=== PATIENT | female | born 1985 | race Caucasian/White ===

== ENCOUNTER 2020-05-24 02:00 | Inpatient (IN) | payer OTHER ==
[2020-05-24 04:24] VITALS: BMI 21.1
[2020-05-24 04:58] LABS: BASO % 0.3 % (0-2.0); EOS % 0.2 % (0-4.5); HEMATOCRIT 38.6 % (32.4-45.2); LYMPH % 12.6 % (8-40); MCH 29.5 pg (25.7-33.7); MCHC 33.6 g/dl (32.0-36.0); MEAN CELL VOLUME 87.9 fl (80-96); MEAN PLT VOLUME 10.2 fl (7.5-11.1); NEUT % 78.9 % (42.8-82.8); PLATELET COUNT 184 K/MM3 (134-434); RBC 4.39 M/mm3 (3.60-5.2); RDW 13.7 % (11.6-15.6); WHITE BLOOD COUNT 15.3 K/mm3 (4.0-10.0)
[2020-05-24] MEDS ORDERED: BUTORPHANOL TARTRATE 2 MG/ML VIAL ONE (05:04)
[2020-05-24] MEDS ORDERED: PROMETHAZINE HCL 25 MG/1 ML VIAL ONE (05:04)
[2020-05-24 05:10] LABS: INR 0.85 (0.83-1.09)
[2020-05-24 05:13] LABS: ACTIVATED PTT 26.1 SECONDS (25.2-36.5)
[2020-05-24 05:22] LABS: BLOOD UREA NITROGEN 10.8 mg/dL (7-18); CALCIUM 9.7 mg/dL (8.5-10.1); CREATININE 0.5 mg/dL (0.55-1.3); POTASSIUM 3.7 mmol/L (3.5-5.1)
[2020-05-24] MEDS ORDERED: PROMETHAZINE HCL 25 MG/1 ML VIAL IVPB ONE (05:45)
[2020-05-24] MEDS ORDERED: BUTORPHANOL TARTRATE 2 MG/ML VIAL IVPB ONE (05:45)
[2020-05-24] MEDS ORDERED: ELECTROLYTE-148 SOLN 1,000 ML IV SCH ×2 (05:45→07:45)
[2020-05-24] MEDS ORDERED: PCA PUMP NR ONE (06:59)
[2020-05-24] MEDS ORDERED: FENTANYL/BUPIVACAINE/NS/PF - PCEA - 50 ML DISP.SYRIN EP ONE (07:00)
--- NOTE | 2020-05-24 07:17 | PD.OB.PROG ---
Past Medical History - Primary Care Physician PCP:: Anu Trejo Documenting Provider Type: Laborist - Admission Chief Complaint: ctx.; for poss. discharge History of Present Illness: Second baby, 38.5 wks. Ctx on and off for several hour. No cervical changes. GBS neg. History Source: Patient, Medical Record Limitations to Obtaining History: No Limitations - Nursing Documentation Maternal Triage Index: Maternal Triage Index ( Priority 3, Prompt MFTI) Maternal Triage Index ( Priority 3, Prompt MFTI) Hemorrhage Risk Assessment: Risk Level Low Risk Risk Level Low Risk High Level Risk Factors for None Hemorrhage High Level Risk Factors for None Hemorrhage Medium Level Risk Factors for None of the above Hemorrhage Medium Level Risk Factors for None of the above Hemorrhage Low Level Risk Factors for No previous uterine incis,Marie Pregnaancy, Hemorrhage Four (4) or less previous,No known bleeding,No history of PPH Low Level Risk Factors for Marie Pregnaancy Hemorrhage Nursing Documentation Reviewed: Yes - Past Medical History CHUCK BONER: Denies/None Cardio/Vascular: Denies/None Pulmonary: Denies/None Gastrointestinal: Denies/None Hepatobiliary: Denies/None Renal/: Denies/None ...: 4 ...Para: 1 ...Term: 1 ...: 0 ...Spon : 1 ...Induced : 1 ...Living Children: 1 ...Multiple Gestation: 0 ...LMP: 09/02/19 ... Weeks Gestation by Dates: 38.5 ...EDC by Dates: 06/02/20 Heme/Onc: Denies/None Infectious Disease: Denies/None Psych: Denies/None Musculoskeletal: Denies/None Rheumatology: Denies/None ENT: Denies/None Endocrine: Denies/None Dermatology: Denies/None - Smoking History Smoking history: Never smoked Have you smoked in the past 12 months: No - Alcohol/Substance Use Hx Alcohol Use: No - Social History Usual Living Arrangement: With Spouse Review of Systems - Review of Systems Constitutional: reports: No Symptoms Eyes: reports: No Symptoms HENT: reports: No Symptoms Neck: reports: No Symptoms Cardiovascular: reports: No Symptoms Respiratory: reports: No Symptoms Gastrointestinal: reports: No Symptoms Genitourinary: reports: No Symptoms Breasts: reports: No Symptoms Reported Musculoskeletal: reports: No Symptoms Integumentary: reports: No Symptoms Neurological: reports: No Symptoms Endocrine: reports: No Symptoms Hematology/Lymphatic: reports: No Symptoms Psychiatric: reports: No Symptoms Physical Exam - Obstetrical Vital Signs: Vital Signs Temperature 98.1 F 05/24/20 06:00 Pulse Rate 88 05/24/20 06:00 Respiratory Rate 20 05/24/20 06:00 Blood Pressure 128/70 05/24/20 06:00 O2 Sat by Pulse Oximetry (%) 100 05/24/20 03:35 Constitutional: Yes: Well Nourished, No Distress, Calm Eyes: Yes: WNL, Conjunctiva Clear, EOM Intact HENT: Yes: WNL, Atraumatic, Normocephalic Neck: Yes: WNL, Supple, Trachea Midline Cardiovascular: Yes: WNL, Regular Rate and Rhythm Lungs: Clear to auscultation Breast(s): Yes: WNL - Abdominal Exam/OB Fundal Height: 38 Number of Fetuses: Single Presentation: Vertex Contractions: Yes Regularity: Irregular Intensity: Mild Monitor Mode: External Heart Rate (range): 140 Heart Rate Location: [facility] Category: I Accelerations: Uniform Decelerations: None - Vaginal Exam/OB Vaginal Exam Deferred: No Vaginal Bleeding: Bloody Show Speculum Exam: No Dilatation (cm): 3 Effacement (%): 50 Amniotic Membrane Status: Intact Presentation: Vertex/Position Station: -2 - Physical Exam Musculoskeletal: Yes: WNL Extremities: Yes: WNL Integumentary: Yes: WNL ...Motor Strength: WNL Psychiatric: Yes: WNL - Labs Lab Results: CBC, BMP 05/24/20 04:40 05/24/20 04:40 Problem List - Problems (1) Labor abnormality, antepartum Code(s): O62.9 - ABNORMALITY OF [employer] OF [employer], UNSPECIFIED Assessment/Plan Second baby, early labor. Pt. doesn't want to go home. Plan: OOB, walk. Augment labor in few hours if not active on her own. Expecting delivery today.
--- NOTE | 2020-05-24 07:39 | HP ---
Past Medical History - Primary Care Physician PCP:: Anu Trejo - Admission Chief Complaint: 34yo P1021 @ 38.2 wks with labor pains, no VB, no LOF, +FM History of Present Illness: 1.Anemia iron defficiency - corrected with diet 2. Prior 26oodm, uncomplicated 3. S<D - EFW <10% 4. Tetnus vaccination declined 5. GBS neg History Source: Patient Limitations to Obtaining History: No Limitations - Past Medical History ...: 4 ...Para: 1 ...Term: 1 ...: 0 ...Spon : 1 ...Induced : 1 ...Living Children: 1 ...Multiple Gestation: 0 ...LMP: 09/02/19 ... Weeks Gestation by Dates: 38.5 ...EDC by Dates: 06/02/20 - Past Surgical History Past Surgical History: Yes: None Hx Myomectomy: No Hx Transabdominal Cerclage: No - Smoking History Smoking history: Never smoked Have you smoked in the past 12 months: No - Alcohol/Substance Use Hx Alcohol Use: No - Social History History of Recent Travel: No Home Medications - Allergies Allergies/Adverse Reactions: Allergies Allergy/AdvReac Type Severity Reaction Status Date / Time No Known Allergies Allergy Verified 05/24/20 05:02 - Home Medications Home Medications: Ambulatory Orders Pnv No.95/Ferrous Fum/Folic AC [ Formula] 1 each PO DAILY 05/24/20 Review of Systems - Review of Systems Constitutional: reports: No Symptoms Eyes: reports: No Symptoms HENT: reports: No Symptoms Neck: reports: No Symptoms Cardiovascular: reports: No Symptoms Respiratory: reports: No Symptoms Gastrointestinal: reports: No Symptoms Genitourinary: reports: Other (+ contructions) Breasts: reports: No Symptoms Reported Musculoskeletal: reports: No Symptoms Integumentary: reports: No Symptoms Neurological: reports: No Symptoms Endocrine: reports: No Symptoms Hematology/Lymphatic: reports: No Symptoms Psychiatric: reports: No Symptoms Physical Exam - Maternity Vital Signs: Vital Signs Temperature 98.1 F 05/24/20 06:00 Pulse Rate 88 05/24/20 06:00 Respiratory Rate 20 05/24/20 06:00 Blood Pressure 128/70 05/24/20 06:00 O2 Sat by Pulse Oximetry (%) 100 05/24/20 03:35 Constitutional: Yes: Well Nourished, No Distress, Calm Eyes: Yes: WNL, Conjunctiva Clear HENT: Yes: WNL, Atraumatic, Normocephalic Neck: Yes: WNL, Supple, Trachea Midline Cardiovascular: Yes: WNL, Regular Rate and Rhythm Lungs: Clear to auscultation Breast(s): Yes: WNL - Abdominal Exam/OB Fundal Height: 35 Number of Fetuses: Single Presentation: Vertex Contractions: Yes Regularity: Regular Intensity: Mild/Mod Monitor Mode: External Heart Rate (range): 140 Heart Rate Location: Midline Category: I Accelerations: Uniform Decelerations: None - Vaginal Exam/OB Vaginal Bleeding: No Speculum Exam: No Dilatation (cm): 3 Effacement (%): 50% Amniotic Membrane Status: Intact Presentation: Vertex/Position Station: -3 - Physical Exam Musculoskeletal: Yes: WNL Extremities: Yes: WNL Edema: No Integumentary: Yes: WNL ...Motor Strength: WNL Psychiatric: Yes: WNL, Alert, Oriented - Labs Lab Results: CBC, BMP 05/24/20 04:40 05/24/20 04:40 Assessment/Plan 34yo P1 @ 38.2 wks in early active labor Admit to L&D NPO, Labs, IVF Pain management as per patient Adequate pelvis EFW 6lb Anticipate
[2020-05-24] MEDS ORDERED: OXYTOCIN 20 UNITS in 0.9% NS 20 UNIT/1,000 ML INFUS.BAG IV ONE ×2 (07:55→12:12)
[2020-05-24] MEDS ORDERED: NALOXONE HCL 0.4 MG/ML VIAL IVPUSH PRN (08:34)
[2020-05-24] MEDS ORDERED: FENTANYL/BUPIVACAINE/NS/PF - PCEA - 50 ML DISP.SYRIN EP SCH (08:45)
[2020-05-24] MEDS ORDERED: IBUPROFEN 600 MG TABLET (FP) PO PRN (10:24)
[2020-05-24] MEDS ORDERED: BENZOCAINE 28 GM HEMORRHOIDAL OINTMENT TP PRN (10:24)
[2020-05-24] MEDS ORDERED: WITCH HAZEL 50% (TUCKS) 40 PAD/JAR PAD TP PRN (10:24)
[2020-05-24] MEDS ORDERED: BENZOCAINE 20% 57 GM BOTTLE TP PRN (10:24)
[2020-05-24] MEDS ORDERED: BISACODYL 10 MG SUPP.RECT RC PRN (10:24)
[2020-05-24] MEDS ORDERED: ACETAMINOPHEN 325 MG TABLET (FP) PO PRN (10:24)
[2020-05-24] MEDS ORDERED: METHYLERGONOVINE MALEATE 0.2 MG/1 ML AMP IM PRN (10:24)
--- NOTE | 2020-05-24 10:24 | PN ---
Delivery - Delivery Vaginal Delivery: No Problems Maneuvers: Karen Type of Anesthesia: Epidural Episiotomy/Laceration: Vaginal Extension/lac, 1st degree EBL (cc): 300 Delivery, Single - Stages of Labor Date 1st Stage Initiatied: 05/24/20 Time 1st Stage Initiated: 04:00 Date 2nd Stage Initiated: 05/24/20 Time 2nd Stage Initiated: 09:30 Date of Delivery: 05/24/20 Time of Delivery: 10:06 Date Placenta Delivered: 05/24/20 Time Placenta Delivered: 10:08 Placenta: Yes: Spontaneous - Condition of Infant Clinical Exercise Physiologist/Campus President Present: No Infant Gender: Female Position: Right, OA - Feeding Plan Initial Plan: Exclusive throughout hospitalization Benefits of Exclusively reinforced: Yes
[2020-05-24] MEDS ORDERED: OXYTOCIN 20 UNITS in 0.9% NS 20 UNIT/1,000 ML INFUS.BAG IV SCH (10:30)
[2020-05-24 10:59] LABS: CORD BASE EXCESS -4.5 mmol/L (0-2); CORD HCO3 21.6 mmHg (20-29); CORD PCO2 43.7 mmHg (30-78); CORD pH 7.312 (7.14-7.44)
[2020-05-24 11:02] LABS: CORD BASE EXCESS -6.5 mmol/L (0-2); CORD HCO3 20.8 mmHg (20-29); CORD pH 7.255 (7.14-7.44)
[2020-05-24] MEDS: FERROUS SO4 325 MG TABLET (FP) PO SCH (18:11)
--- NOTE | 2020-05-25 08:59 | PN ---
Post Progress Note - Subjective Subjective: Patient without acute complaints. Reports tolerating oral intake without nausea or vomiting. Ambulating without dizziness. Denies fevers or chills. Pain well controlled with oral pain medication. Pumping/breast feeding without issue. Passing flatus, no BM. Post Day: 1 Type of Delivery: Vital Signs: Vital Signs Temperature 98.2 F 05/25/20 06:00 Pulse Rate 78 05/25/20 06:00 Respiratory Rate 18 05/25/20 06:00 Blood Pressure 100/61 05/25/20 06:00 O2 Sat by Pulse Oximetry (%) 98 05/24/20 18:51 Breast Exam: Yes: Soft Uterus: Yes: Fundus Firm, Fundus below umbilicus, Non-tender Abdomen/GI: Yes: Abdomen soft, Passing flatus, Tolerating PO Lochia: Yes: Rubra Lochia, amount: Small Extremities: Yes: Calves non-tender Perineum: Yes: Intact, Laceration Activity: Ambulating - Labs Labs: CBC WBC 15.3 K/mm3 (4.0-10.0) H 05/24/20 04:40 RBC 4.39 M/mm3 (3.60-5.2) 05/24/20 04:40 Hgb 13.0 GM/dL (10.7-15.3) 05/24/20 04:40 Hct 38.6 % (32.4-45.2) 05/24/20 04:40 MCV 87.9 fl (80-96) 05/24/20 04:40 MCH 29.5 pg (25.7-33.7) 05/24/20 04:40 MCHC 33.6 g/dl (32.0-36.0) 05/24/20 04:40 RDW 13.7 % (11.6-15.6) 05/24/20 04:40 Plt Count 184 K/MM3 (134-434) 05/24/20 04:40 MPV 10.2 fl (7.5-11.1) 05/24/20 04:40 Absolute Neuts (auto) 12.0 K/mm3 (1.5-8.0) H 05/24/20 04:40 Neutrophils % 78.9 % (42.8-82.8) 05/24/20 04:40 Lymphocytes % 12.6 % (8-40) 05/24/20 04:40 Monocytes % 8.0 % (3.8-10.2) 05/24/20 04:40 Eosinophils % 0.2 % (0-4.5) 05/24/20 04:40 Basophils % 0.3 % (0-2.0) 05/24/20 04:40 Nucleated RBC % 0 % (0-0) 05/24/20 04:40 Assessment/Plan 34yo P1 s/p , doing well stable, afebrile. Asymptomatic for anemia. care instructions reviewed. Continue routine care. Ambulation encouraged Discharge instruction reviewed.
[2020-05-25] MEDS: FERROUS SO4 325 MG TABLET (FP) PO SCH ×2 (09:00→18:24)
[2020-05-25 09:13] LABS: BASO % 0.1 % (0-2.0); EOS % 0.5 % (0-4.5); HEMATOCRIT 34.7 % (32.4-45.2); HEMOGLOBIN 11.5 GM/dL (10.7-15.3); LYMPH % 15.4 % (8-40); MCH 29.5 pg (25.7-33.7); MCHC 33.2 g/dl (32.0-36.0); MEAN CELL VOLUME 88.7 fl (80-96); MEAN PLT VOLUME 10.1 fl (7.5-11.1); MONO % 7.2 % (3.8-10.2); NEUT % 76.8 % (42.8-82.8); PLATELET COUNT 155 K/MM3 (134-434); RBC 3.91 M/mm3 (3.60-5.2); WHITE BLOOD COUNT 12.7 K/mm3 (4.0-10.0)
[2020-05-25] MEDS ORDERED: PRENATAL VITAMINS W/ FOLIC ACID TABLET (FP) PO SCH (10:00)
[2020-05-25 10:06] VITALS: BP 101/68; PULSE 84; TEMP 97.6
--- NOTE | 2020-05-25 17:36 | DS ---
Physical Exam-PROFESSOR OF PHYSICS Vital Signs: Vital Signs Temperature 97.6 F 05/25/20 09:54 Pulse Rate 84 05/25/20 09:54 Respiratory Rate 18 05/25/20 09:54 Blood Pressure 101/68 05/25/20 09:54 O2 Sat by Pulse Oximetry (%) 98 05/24/20 18:51 Constitutional: Yes: Well Nourished, No Distress, Calm Eyes: Yes: WNL, Conjunctiva Clear, EOM Intact HENT: Yes: WNL, Atraumatic, Normocephalic Neck: Yes: WNL, Supple, Trachea Midline Cardiovascular: Yes: WNL, Regular Rate and Rhythm Respiratory: Yes: WNL, Regular, CTA Bilaterally Gastrointestinal: Yes: WNL, Normal Bowel Sounds, Soft ...Rectal Exam: Yes: Deferred Renal/: Yes: WNL Pelvis: Yes: WNL ....Post : Yes: Uterus firm, Uterus non-tender, Slight lochia rubra Breast(s): Yes: WNL Musculoskeletal: Yes: WNL Extremities: Yes: WNL Edema: No Integumentary: Yes: WNL Neurological: Yes: WNL, Alert, Oriented ...Motor Strength: WNL Psychiatric: Yes: WNL, Alert, Oriented Labs: CBC, BMP 05/25/20 08:15 05/24/20 04:40 Delivery - Delivery Vaginal Delivery: No Problems, Spontaneous Maneuvers: Ritken Type of Anesthesia: Epidural Episiotomy/Laceration: Vaginal Extension/lac, 1st degree EBL (cc): 300 Delivery, Single - Stages of Labor Date 1st Stage Initiatied: 05/24/20 Time 1st Stage Initiated: 04:00 Date 2nd Stage Initiated: 05/24/20 Time 2nd Stage Initiated: 09:30 Date of Delivery: 05/24/20 Time of Delivery: 10:06 Time Placenta Delivered: 10:08 Placenta: Yes: Spontaneous, Normal Configuration - Condition of Infant Director Of Enterprise Strategy/Cafeteria Operator Present: [place]mill: Juancarlos Chacko Infant Gender: Female Weight: 2.75 kg Position: Right, OA Total Hours ROM (Hrs/Mins): 2hrs/16mins - 1 Minute Total Score: 9 5 Minutes Total Score: 9 - [place] Feeding Plan Initial Plan: Exclusive throughout hospitalization Benefits of Exclusively reinforced: Yes Discharge Summary Problems reviewed: Yes Reason For Visit: LABOR Current Active Problems Labor abnormality, antepartum (Acute) Procedures: Principal: Hospital Course: Normal recovery Plan of Treatment: Normal recovery, breast feeding encouraged Goals: Normal recovery Condition: Good - Instructions Diet, Activity, Other Instructions: Physical activity Resume your normal everyday activity as tolerated no heavy lifting or exercise u ntil seen by your surgeon. You may walk unlimited hitesh of and climb stairs. You may resume driving the car when you feel safe and comfortable behind the wheel. No sexual activity as instructed. Wound care If you have a bandage, leave it on, and keep dry for 48-72 hours. After that time discard the outer bandage. If they are tapes on the skin under the out of bandage leave them in place. They will peel off in the next 7 to 10 days. Do Not Peel them off. You may shower the day after surgery. If there are tapes present on the skin, you may shower over them. Diet There are no dietary restrictions. Eat healthy, high-fiber foods. Drink 6 to 8 glasses of liquid each day. This will assist in keeping your bowels are regular. Pain management You may take Tylenol or acetaminophen or Ibuprofen (for example, Motrin, Advil etc.) from my pain prescription medication is ordered should be taken as prescribed for moderate to severe pain. Call MD for any of the following: Severe pain not relieved by medication Fever of 101 or higher Excessive bleeding or drainage on dressing Inability to urinate Referrals: Anu Trejo MD [Staff Physician] - 1 Month Disposition: HOME - Home Medications Comprehensive Discharge Medication List: Ambulatory Orders Pnv No.95/Ferrous Fum/Folic AC [ Formula] 1 each PO DAILY 05/24/20 Prescription Drug Monitoring Program (I-STOP) results: I-STOP not reviewed
[2020-05-25] MEDS ORDERED: SENNOSIDES/DOCUSATE COMBO (SENNA PLUS) TABLET (UD) PO PRN (22:00)
== END 2020-05-25 19:20 | disposition home or self-care (01) | DRG 560 ==
LOC: JDEL 02:00 → JLDR 03:35 → J3W 12:23
PROVIDERS: ADMIT Obstetrics & Gynecology; ATTEND Obstetrics & Gynecology
PROC: 10E0XZZ Delivery of Products of Conception, External Approach (ICD-10-PCS; principal; 2020-05-24)
PROC: 0W8NXZZ Division of Female Perineum, External Approach (ICD-10-PCS; 2020-05-24)
PROC: 0HQ9XZZ Repair Perineum Skin, External Approach (ICD-10-PCS; 2020-05-24)
DX: O70.0 First degree perineal laceration during delivery (principal); O99.013 Anemia complicating pregnancy, third trimester; D50.9 Iron deficiency anemia, unspecified; Z3A.38 38 weeks gestation of pregnancy; Z37.0 Single live birth
CPT/HCPCS: 36415; 36600; 59025; 59409; 80048; 82803; 85025; 85610; 85730; 86780; 86850; 86900; 86901; 87389; U0003